=== PATIENT | female | born 1955 | race Caucasian/White ===

== ENCOUNTER 2017-01-05 14:35 | Emergency (ER) | payer OTHER ==
[2017-01-05 14:48] VITALS: RESP 16
[2017-01-05] MEDS ORDERED: TDAP ADULT 0.5 ML INJ (BOOSTRIX) IM ONE (15:44)
--- NOTE | 2017-01-05 15:49 | EDPHY ---
H & P Time Seen by Provider: 01/05/17 15:21 HPI/ROS: This patient has a cat bite to dorsum of her right arm that occurred from her CT yesterday and she has some redness is increasing in size today currently about a [id number] cm or so with mild burning discomfort. This concerned her because he had significant hand infection from her cat bite a few years back that required IV antibiotics for 5 days or more. She also complains of left 3rd finger injury 2 weeks ago with persistent symptoms. She is slammed the finger in a door and still has pain to the middle phalanx-dorsal aspect when she flexes and extends. She also feels that there is persistent mild swelling there. ROS: No fevers chills or other constitutional symptoms HEENT: No complaints Pulmonary: No complaints Cardiovascular: No lightheadedness or heart palpitations. No chest pain GI: No nausea or vomiting Integumentary: No purulent drainage. 7 point ROS is otherwise negative Past Medical/Surgical History: Hypothyroidism Spinal pain Smoking Status: Never smoked Physical Exam: Physical Exam Vital signs are normal. General: No acute distress Eyes: Pupils equal and react to light. Extraocular motions are intact. Lungs: No respiratory distress. Cardiac: Brisk capillary refill is intact throughout. Skin: 2 small puncture wounds to the dorsum of the right forearm with 3 cm diameter of erythema, mild warmth to touch, no fluctuance no foreign bodies no proximal erythematous streaking. Extremities: Atraumatic normal except for left 3rd finger Left 3rd finger: Patient has mild swelling to the dorsum of the middle phalanx. She retains full range of motion despite this but has slight tightness with flexion. Neuro: Alert with no sensorimotor deficits to the affected extremity Differential diagnosis: Finger extensor tendon inflammation/contusion, for subacute fracture, traumatic hematoma, cat bite with early cellulitis, cat bite with localized allergic reaction Constitutional: Initial Vital Signs Heart Rate 85 01/05/17 14:43 Respiratory Rate 16 01/05/17 14:43 Blood Pressure 138/74 H 01/05/17 14:43 O2 Sat (%) 100 01/05/17 14:43 O2 Delivery Mode Room Air Allergies/Adverse Reactions: erythromycin base Allergy (Verified 01/05/17 14:41) Penicillins Allergy (Verified 01/05/17 14:41) Sulfa (Sulfonamide Antibiotics) Allergy (Verified 01/05/17 14:41) tetracycline Allergy (Verified 01/05/17 14:42) Home Medications: Medication Instructions Recorded Acyclovir 01/05/17 Cephalexin [Keflex (*)] 500 mg PO TID #21 cap 01/05/17 Gabapentin 01/05/17 Losartan Potassium 01/05/17 Ondansetron Odt [Zofran Odt] 4 - 8 mg PO Q4PRN PRN #4 tab 01/05/17 Synthroid 01/05/17 MDM/Departure - MDM Diagnostics: Finger x-ray: Negative for fracture by my interpretation Imaging Results: Imaging Impressions Finger X-Ray 01/05/17 15:08 Impression: There is no acute or subacute osseous abnormality. Imaging: I viewed and interpreted images myself Medications Given: Discontinued Medications Diphtheria/Tetanus/Acell Pertussis (Boostrix) 0.5 ml IM .ONCE ONE Stop: 01/05/17 15:45 Last Admin: 01/05/17 15:49 Dose: 0.5 ml ED Course/Re-evaluation: I counseled the patient regarding her finger injury to check is most consistent with some persistent inflammation to the tendon sheath on the dorsum of the finger. She has evidence of early cat bite with infection but no evidence of sepsis, lymphangitic involvement or abscess. We had an extensive discussion regarding antibiotic options given her multiple allergies. She has tolerated cephalosporins in the past having decided on Keflex is best option considering her multiple allergies. - Depart Disposition: Home, Routine, Self-Care Clinical Impression: Infected cat bite Qualifiers: Encounter type: initial encounter Qualified Code(s): W55.01XA - Bitten by cat, initial encounter Finger contusion Qualifiers: Encounter type: initial encounter Finger: middle finger Damage to nail status: without damage Laterality: left Qualified Code(s): S60.032A - Contusion of left middle finger without damage to nail, initial encounter Condition: Good Instructions: Animal Bite (ED) Additional Instructions: Diagnoses: 1. Infected cat bite-right arm 2. Left 3rd finger contusion with tendon inflammation Plan: Apply warm packs/hot compresses to the right arm 3 times a day until symptoms resolve Keflex antibiotic Take a probiotic while on Keflex Zofran if needed for nausea while on Keflex For the left 3rd finger-ice, daily stretches, gentle massage, anti- inflammatories Return for any significant worsening despite the treatment plan. Prescriptions: Cephalexin [Keflex (*)] 500 mg PO TID #21 cap Ondansetron Odt [Zofran Odt] 4 - 8 mg PO Q4PRN PRN #4 tab PRN Reason: Vomiting Referrals: Aissatou Coles MD [Primary Care Provider] - As per Instructions
[2017-01-05 15:55] VITALS: BP 106/67; PULSE 83; TEMP 98.2; O2SAT 99
== END 2017-01-05 15:54 | disposition home or self-care (01) ==
LOC: CED 14:35
PROC: 3E0234Z Introduction of Serum, Toxoid and Vaccine into Muscle, Percutaneous Approach (ICD-10-PCS; principal; 2017-01-05)
DX: S60.032A Contusion of left middle finger without damage to nail, initial encounter (principal); L08.9 Local infection of the skin and subcutaneous tissue, unspecified; S51.851A Open bite of right forearm, initial encounter; Z23 Encounter for immunization; W55.01XA Bitten by cat, initial encounter
CPT/HCPCS: 73140-PO